=== PATIENT | male | born 1990 | race Caucasian/White ===

== ENCOUNTER 2018-12-29 10:41 | Emergency (ER) | payer SELFPAY ==
[~2018-12-29] VITALS: Ht 180.3 cm; Wt 84.4 kg
--- OUTSIDE RECORDS SUMMARY | 2018-12-29 10:43 | XMS REPORT | Clinical Summary ---
Author Author [facility] Address Unknown Phone Unavailable Care Team Providers Care Measurer Name Role Phone Pcp, No PCP Unavailable Allergies No Known Allergies Medications End Date Status Medication Sig Dispensed Refills Start Date 01/04/2019 Active cephalexin (KEFLEX) 500 Take 1 21 capsule 0 MG capsule capsule (500 9 mg total) by mouth 3 (three) times daily for 7 days. 01/04/2019 Active sulfamethoxazole-trimetho Take 2 28 tablet 0 prim (BACTRIM DS) 800-160 tablets (320 9 mg per tablet mg of trimethoprim total) by mouth 2 (two) times daily for 7 days. 01/07/2019 Active acetaminophen-codeine Take 1-2 15 tablet 0 (TYLENOL #3) 300-30 mg tablets by 9 per tablet mouth every 6 (six) hours as needed for Pain for up to 10 days. Max Daily Amount: 8 tablets Active Problems Not on file Encounters Care Team Description Date Type Specialty Nikolas Torres MD Infected sebaceous cyst of skin (Primary Dx) 12/28/2018 Emergency Emergency Medicine 12/28/2018 Travel after 12/28/2017 Immunizations Name Dates Previously Given Next Due Tdap 12/28/2018 Social History Date Tobacco Use Types Packs/Day Years Used Never Smoker Smokeless Tobacco: Never Used Alcohol Use Drinks/Week oz/Week Comments Yes 15 Shots of 9.0 liquor Sex Assigned at Date Recorded Not on file Industry Job Start Date Occupation Not on file Not on file Not on file Travel End Travel History Travel Start No recent travel history available. Last Filed Vital Signs Time Taken Vital Sign Reading 12/28/2018 5:21 PM CDT Blood Pressure 130/74 12/28/2018 5:21 PM CDT Pulse 88 12/28/2018 5:21 PM CDT Temperature 36.7 C (98 F) 12/28/2018 5:21 PM CDT Respiratory Rate 19 12/28/2018 5:21 PM CDT Oxygen Saturation 98% - Inhaled Oxygen - Concentration 12/28/2018 3:58 PM CDT Weight 84.4 kg (186 lb) 12/28/2018 3:58 PM CDT Height 180.3 cm (5' 11") 12/28/2018 3:58 PM CDT Body Mass Index 25.94 Plan of Treatment Not on file Procedures Comments Procedure Name Priority Date/Time Associated Diagnosis HI DRAIN SKIN ABSCESS Routine 12/28/2018 COMPLIC 5:04 PM CDT after 12/28/2017 Results * Incision/Drainage (12/28/2018 5:04 PM CDT) Narrative Performed At Radha Marinelli PA-C 12/28/20185:12 PM Incision/Drainage Date/Time: 12/28/2018 5:10 PM Performed by: Radha Marinelli PA-C Authorized by: Nikolas Torres MD Consent: Verbal consent obtained. Risks and benefits: risks, benefits and alternatives were discussed Consent given by: patient Patient identity confirmed: verbally with patient and arm band Type: abscess Body area: trunk Location details: back Anesthesia: local infiltration Anesthesia: Local Anesthetic: lidocaine 1% without epinephrine Anesthetic total: 6 mL Sedation: Patient sedated: no Scalpel size: 11 Incision type: single straight Complexity: complex Drainage: purulent Drainage amount: copious Packing material: 1/2 in iodoform gauze Patient tolerance: Patient tolerated the procedure well with no immediate complications Immediate Post-Procedure Note Date/Time: 12/28/2018 5:11 PM Assistants to the procedure: None Pre-procedure diagnosis: sebaceous cyst infeted Post-procedure diagnosis: drained sebaceous cyst Procedures Performed: Incision/Drainage Specimens removed: None Estimated blood loss (mL): None Complications: None Type of anesthesia: None Grafts or Implants: None after 12/28/2017
--- NOTE | 2018-12-29 10:52 | NUR ---
DR JORDAN AT BEDSIDE FOR PATIENT EVAL.
--- NOTE | 2018-12-29 10:56 | NUR ---
DRESSING CHANGED BY DR JORDAN. NO SIGNS OF ACUTE DISTRES NOTED.
== END 2018-12-29 11:26 | disposition home or self-care (01) ==
LOC: FSED 10:41
DX: Z48.01 Encounter for change or removal of surgical wound dressing (principal); L02.11 Cutaneous abscess of neck; L02.413 Cutaneous abscess of right upper limb
CPT/HCPCS: 99282